=== PATIENT | female | born 1940 | race Caucasian/White ===

== ENCOUNTER 2018-02-25 14:24 | Observation (INO) | payer MEDICARE ==
[~2018-02-25] VITALS: Ht 154.9 cm; Wt 70.9 kg
[2018-02-25 14:12] VITALS: BP 140/66
[2018-02-25 14:15] VITALS: BP 140/66
[2018-02-25] MEDS ORDERED: HYDROCODONE/APAP 5MG-325MG TAB PO PRN (14:30)
[2018-02-25] MEDS ORDERED: ACETAMINOPHEN 325 MG TAB PO PRN (14:30)
[2018-02-25] MEDS ORDERED: ONDANSETRON HCL INJ 2 MG/ML VIAL IV PRN (14:30)
--- NOTE | 2018-02-25 16:17 | Diagnostic Imaging Report ---
EXAMINATION: MRI of the brain without contrast. HISTORY: Left lower extremity numbness, evaluate for acute stroke COMPARISON: None. TECHNIQUE: Sagittal T2; axial DWI, T2, FLAIR, T1-IR, T2 gradient echo; coronal FLAIR. IMAGE QUALITY: Adequate. FINDINGS: Parenchyma: 1. Few a scattered and mildly confluent periventricular white matter T2 and FLAIR hyperintense foci, most likely nonspecific chronic microvascular ischemic changes. 2. No mass, hemorrhage, acute or chronic infarcts. Skull: Unremarkable. Vessels: Expected flow voids present in the major arteries and dural sinuses. Extra-axial spaces: No abnormal signal intensity or mass effect. Brain volume: Within normal limits for age. Ventricles: No hydrocephalus or displacement. Foramen magnum: Unremarkable. Sella: Unremarkable. Paranasal / mastoid sinuses: No significant inflammatory disease. IMPRESSION: 1. No acute or chronic infarcts. 2. Mild chronic microvascular ischemic changes. Signed by: Dr. Ninoska Stein M.D. on 02/25/2018 4:14 PM
[2018-02-25 17:46] VITALS: BP 140/66
[2018-02-25] MEDS ORDERED: SERTRALINE HCL100 MG PO (18:17)
[2018-02-25] MEDS ORDERED: KLONOPIN1 MG PO (18:17)
[2018-02-25] MEDS ORDERED: TRAZODONE HCL50 MG PO (18:17)
[2018-02-25] MEDS ORDERED: BUPROPION HCL150 MG PO (18:17)
[2018-02-25 20:00] VITALS: BP 127/62
[2018-02-25 20:45] VITALS: BP 127/62
[2018-02-25] MEDS ORDERED: TRAZODONE HCL 50 MG TAB PO SCH (21:00)
[2018-02-25] MEDS ORDERED: ATORVASTATIN 20 MG TAB PO SCH (21:00)
--- NOTE | 2018-02-25 21:07 | Consultation ---
DATE OF CONSULTATION: February 25, 2018 NEUROLOGY CONSULTATION HISTORY OF PRESENT ILLNESS: Ms. Branch is a 77-year-old [id number] woman without vascular risk factors, admitted to [facility] under observation status on February 25, 2018, with symptoms concerning for a stroke. At approximately 0900 on February 25, 2018, the patient was sitting on her bed with her left leg crossed over her right leg. Ms. Branch noted numbness affecting her left foot and foreleg distal to the knee. The patient uncrossed her legs, but the numbness persisted. Ms. Branch does not endorse burning pain, tingling, pins and needles sensation, or other abnormal sensation associated with the numbness. She does not endorse a visual field cut or other disturbance, dysarthria, aphasia, facial droop, hemiparesis, dizziness, or confusion associated with the left leg numbness. She does endorse impairment of gait and balance, but this is chronic. The patient is uncertain as to whether or not there was worsening of these symptoms in association with the left leg numbness. Ms. Branch admits to being very anxious regarding the above symptoms. She notified emergency medical services and was transported by ambulance to a freestanding emergency center for further evaluation. In the emergency center, an electrocardiogram showed a normal sinus rhythm of 80 beats per minute. Blood work and urine studies were unremarkable. A CT of the brain without contrast was performed and did not show evidence of recent large territorial ischemia or hemorrhage. Ms. Branch was transferred to [facility] for further evaluation and treatment. At present, Ms. Branch does not report numbness affecting her left foot or foreleg. She reports these symptoms resolved after several hours. REVIEW OF SYSTEMS: Numbness of the left foot and foreleg, insomnia, anxiety. Otherwise the 12-point review of systems was negative. PAST MEDICAL HISTORY: Mixed depression/anxiety disorder. PAST SURGICAL HISTORY: Bilateral tubal ligation, total hysterectomy, cholecystectomy/appendectomy, bilateral cataract removal. PAST HOSPITALIZATIONS: Surgeries/procedures as listed, childbirth x4. FAMILY MEDICAL HISTORY: The patient's paternal and maternal grandparents are . Their medical histories are unknown. The patient's father is . He had diabetes mellitus. The patient's mother is . Her medical history included hypertension, hyperlipidemia, stroke, and breast cancer. The patient has no siblings. Ms. Branch has 4 children, 3 girls and 1 boy, all of whom are living. The eldest daughter has schizophrenia. The son is HIV positive. The second daughter had breast cancer 1 year ago. The youngest daughter has fibromyalgia, endometriosis, and a hip disorder requiring radiation therapy. SOCIAL HISTORY: The patient is . She is retired. 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 Ms. Branch does report a remote history of tobacco use, but quit smoking cigarettes 50 years ago. She reports drinking an occasional glass of wine. She does not report current or prior recreational drug use. HOME MEDICATIONS: Wellbutrin 50 mg by mouth every morning, clonazepam 1 mg by mouth every morning, sertraline 100 mg by mouth twice daily, BuSpar 10 mg by mouth daily, trazodone 1 tablet by mouth at bedtime daily, aspirin 81 mg by mouth at bedtime daily. ALLERGIES: NO KNOWN DRUG ALLERGIES. NO KNOWN FOOD ALLERGIES. MS. BRANCH DOES ENDORSE A LATEX ALLERGY. NO KNOWN ALLERGIES TO IODINE OR OTHER CONTRAST MATERIALS. PHYSICAL EXAMINATION VITAL SIGNS: Height 61 inches, weight 160 pounds, BMI 30.2 kg per meter squared. Blood pressure 140/66 mmHg, pulse 80 beats per minute, respiratory ate 20 breaths per minute, oxygen saturation 96% on room air. GENERAL: The patient is awake and alert, does not appear distressed. Obese. HEENT: Normocephalic, atraumatic. Pupils are surgical. Moist mucous membranes. NECK: Supple. No appreciable thyromegaly. No appreciable carotid bruits. CARDIOVASCULAR: S1, S2, regular rate and rhythm. No murmurs, rubs, or gallops. RESPIRATORY: Clear to auscultation bilaterally. No wheezes, rhonchi, or rales. EXTREMITIES: The skin is warm and dry. No clubbing, cyanosis, or edema. The posterior tibial and dorsalis pedis pulses are 2+ and symmetric. SKIN: No rashes or lesions. NEUROLOGIC MEMORY/ATTENTION: The patient is awake and alert, oriented to person, place, time, and situation. CRANIAL NERVES: Cranial nerve 1--Not tested. Cranial nerve 2, 3, 4, and 6--Pupils are surgical. Extraocular movements intact. No nystagmus. Cranial nerve 5--Sensation to light touch and pinprick is intact in the bilateral V1 through V3 distributions. Strength of the temporalis and masseter muscles is within normal limits. Cranial nerve 7--The face is symmetric, as are all facial movements. Strength is within normal limits. Cranial nerve 8--Hearing is diminished to finger rub bilaterally. Cranial nerve 9, 10--The soft palate elevates equally and symmetrically. Cranial nerve 11--Normal strength of the bilateral sternocleidomastoid and trapezius muscles. Cranial nerve 12--The tongue protrudes midline and moves symmetrically from side to side. STRENGTH: Bulk is normal. Strength is 5/5 in the bilateral deltoids, biceps, triceps, wrist flexors and extensors, finger flexors and extensors, intrinsic hand muscles, hip flexors, knee flexors and extensors, ankle dorsiflexion and plantarflexion, and intrinsic foot muscles. Tone is normal. DTRS: Deep tendon reflexes are 2+ and symmetric at the triceps, biceps, brachial radialis, patellas, and Achilles. Plantar responses are flexor bilaterally. Positive Tinel's at the bilateral fibular heads. SENSATION: Sensation is intact to light touch and pinprick in both arms and both legs. CEREBELLAR: Mbfrnq-uhnz-nkszfz and heel-agee movements are intact without dysmetria or other impairment. GAIT: Deferred. SPEECH: Spontaneous speech is normal without appreciable dysarthria or aphasia. Repetition is intact. INVOLUNTARY MOVEMENTS: None. PRONATOR DRIFT: None. LABORATORY DATA: The patient's comprehensive metabolic panel is unremarkable. The CBC with differential and platelets is unremarkable. A urinalysis is within normal limits. DIAGNOSTIC STUDIES Electrocardiogram February 25, 2018: Normal sinus rhythm at [address] of the brain without contrast February 25, 2018: No acute intracranial abnormalities. MRI of the brain without contrast February 25, 2018: On my review, there is no evidence of recent large territorial ischemia, hemorrhage, mass, or mass effect. Cerebral volumes are appropriate for age. There are scattered nonspecific T2/FLAIR hyperintense foci in the supratentorial white matter compatible with mild to moderate chronic small-vessel ischemic disease. ASSESSMENT AND PLAN: Ms. Branch is a 77-year-old zbkys-esap-qdrifkis woman without known vascular risk factors, admitted with transient numbness affecting the left foot and foreleg. At present, her neurological examination is nonfocal. The patient's laboratory data and other diagnostic studies have been reviewed and are documented above. The numbness affecting the patient's left foot and foreleg is due to a left peroneal neuropathy, probably at the fibular head given the positive Tinel's sign at that location. 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 Ms. Branch was advised to refrain from crossing her legs at the knee to limit progression of her nerve injury and occurrence of the symptoms described in the history of present illness. Thank you for this consultation. There are no recommendations from the neurology service at this time. The patient may be discharged to home. Time spent: 70 minutes. Job#: [id number] EV MTDMary Anne
[2018-02-25] MEDS ORDERED: SERTRALINE HCL 100 MG TAB PO ONE (22:30)
[2018-02-25] MEDS ORDERED: CLONAZEPAM 1 MG TAB PO ONE (22:30)
[2018-02-26] VITALS: BP 138/75
[2018-02-26 04:00] VITALS: BP 98/44
[2018-02-26 05:04] LABS: BASOPHILS % 0.5 % (0.0-1.0); EOSINOPHILS # (AUTO) 0.2 (0.0-0.4); HEMATOCRIT 34.7 % (34.2-44.1); HEMOGLOBIN 11.7 g/dL (12.0-16.0); LYMPHOCYTES # (AUTO) 2.8 (1.0-3.2); LYMPHOCYTES % 46.6 % (18.0-39.1); MEAN CORPUSCULAR HEMOGLOBIN 29.1 pg (28-32); MEAN CORPUSCULAR HGB CONC 33.7 g/dL (31-35); MEAN CORPUSCULAR VOLUME 86.3 fL (81-99); MONOCYTES # (AUTO) 0.7 (0.2-0.8); MONOCYTES % 11.6 % (4.4-11.3); NEUTROPHILS # (AUTO) 2.3 (2.1-6.9); NEUTROPHILS % 38.1 % (38.7-80.0); PLATELET COUNT 159 x10e3/uL (140-360); RED BLOOD COUNT 4.02 x10e6/uL (3.6-5.1); RED CELL DISTRIBUTION WIDTH 12.4 % (11.7-14.4)
[2018-02-26 05:33] LABS: ALANINE AMINOTRANSFERASE 18 IU/L (0-55); ALBUMIN 3.6 g/dL (3.5-5.0); ALBUMIN/GLOBULIN RATIO 1.3 (0.8-2.0); ALKALINE PHOSPHATASE 43 IU/L (40-150); BLOOD UREA NITROGEN 17 mg/dL (7-26); BUN/CREATININE RATIO 20 (6-25); CALCIUM 9.5 mg/dL (8.4-10.2); CARBON DIOXIDE 26 mmol/L (22-29); CHLORIDE 107 mmol/L (98-107); CREATININE, SERUM 0.83 mg/dL (0.57-1.11); EST GLOMERULAR FILTRATION RATE > 60 ML/MIN (60-); GLUCOSE 91 mg/dL (74-118); SODIUM 142 mmol/L (136-145)
[2018-02-26 07:39] VITALS: BP 100/57
[2018-02-26] MEDS ORDERED: SERTRALINE HCL 100 MG TAB PO SCH (09:00)
[2018-02-26] MEDS ORDERED: ASPIRIN 81 MG ENTERIC COATED PO SCH (09:00)
[2018-02-26] MEDS ORDERED: CLONAZEPAM 1 MG TAB PO SCH ×2 (09:00)
[2018-02-26] MEDS ORDERED: BUPROPION HCL SR 150 MG TAB PO SCH (09:00)
[2018-02-26] MEDS ORDERED: ASPIRIN 325 MG TAB PO SCH (09:00)
[2018-02-26 11:15] VITALS: BP 105/61
--- NOTE | 2018-02-26 11:50 | History and Physical ---
HISTORY AND PHYSICAL AND DISCHARGE SUMMARY CHIEF COMPLAINT: Left lower extremity numbness and difficulty walking on the left leg. HPI: This is a 77-year-old female with past medical history of depression and anxiety, who is right-handed predominantly, who presented to an outside [facility] ER with complaints of left lower leg numbness and weakness that began early yesterday morning. Patient presented there at the outside ER and was transferred here to [facility] for further evaluation for concerns of an underlying TIA. Patient reports that at approximately 9 a.m. on February 25, 2018, she began to have some numbness in the left foot and left foreleg distal to the knee. Patient reports that she crosses her legs quite often. She noticed that when she uncrossed her legs that the numbness persisted. Patient was then transferred here for further management and care. There was no evidence of any facial droop, slurred speech, any weakness. No chest pain. No palpitations. Neurology evaluated the patient and it was felt that the patient had a peroneal neuropathy due to crossing her legs. Patient was evaluated. Currently, her numbness is gone and she has no other complaints at this time. REVIEW OF SYSTEMS: Pertinent positives: Left lower extremity numbness and weakness. Pertinent negatives: Denies any chest pain, palpitation, nausea, vomiting, diarrhea, dysuria, hematuria, frequency, urgency, lightheadedness, dizziness, abdominal pain, headache, shortness of breath, cough, congestion, fever, or any other complaints. The rest of 14-point review of systems have been reviewed with the patient and are negative. ALLERGIES: TO LATEX. HOME MEDICATIONS 1. Bupropion 150 mg extended release daily. 2. Klonopin 1 mg p.o. daily. 3. Sertraline 100 mg p.o. b.i.d. 4. Trazodone 50 mg at bedtime for sleep. PAST MEDICAL HISTORY: Anxiety and depression. SURGICAL HISTORY: Bilateral tubal ligation, total hysterectomy, cholecystectomy, appendectomy, bilateral cataract removal. FAMILY HISTORY: Hypertension, diabetes, and also history of CVAs in the past. SOCIAL HISTORY: She is retired. She has history of smoking in the past, 50 pack years. No drugs. Uses occasional wine for alcohol. Otherwise, she has good social support. VITAL SIGNS: Temperature is 97.3, pulse is 72, respiratory rate 17, blood pressure was 138/75, pulse ox 98% on room air. LABORATORY DATA: Lab findings show white count 5.9, hemoglobin 11.7, hematocrit is 34.7, platelets of 159. Chemistry; sodium 142, potassium 4, chloride 107, bicarb 26, anion gap of 13, BUN is 17, creatinine is 0.83, glucose 91, calcium 9.5. Total bilirubin is 0.6, AST 21, ALT 18, alk phos 43, albumin is 3.6. IMAGING: MRI of the brain was performed, no acute or chronic infarct. Mild chronic microvascular ischemic changes. PHYSICAL EXAMINATION GENERAL: Not in acute distress, alert and oriented x3, cooperative on examination. HEENT: Head normocephalic, atraumatic. Eyes, pupils equal, round, and reactive to light bilaterally. Extraocular movements intact bilaterally. Throat; no evidence of any erythema or exudates in the posterior pharynx. Has poor dentition. NECK: Supple with good range of motion. PULMONARY: Clear to auscultation bilaterally. No wheezing. No rales. No rhonchi. No crackles appreciated. CARDIOVASCULAR: Positive S1, S2. No murmurs, rubs, or gallops appreciated. ABDOMEN: Soft, nondistended, nontender to palpation. Bowel sounds present. MUSCULOSKELETAL: Strength is 5/5 throughout. No evidence of any muscle deficit on examination. No weakness appreciated. NEUROLOGICAL: Cranial nerves II through XII are grossly intact. No evidence of neurologic deficit on exam. SKIN: Intact. Warm to touch. Good cap refill. PSYCHIATRIC: Normal affect and mood. EXTREMITIES: No edema. Good range of motion throughout. IMPRESSION 1. 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 2. Anxiety. 3. Depression. PLAN: At this time, per neurology, no further workup was needed. This is peroneal neuropathy from patient crossing her legs. Her symptoms are now resolved. At this time, she has been cleared by neurology with no workup needed. Her symptoms are now all resolved. Patient will continue with same home medications and there will be no changes to her home regimen. She is otherwise stable for discharge home. All her other medications were resumed while here in the hospital. Patient is cleared now for discharge. Job#: [id number] LPA
== END 2018-02-26 12:55 | disposition home or self-care (01) ==
LOC: MED/SURG2 14:24
PROVIDERS: ADMIT Internal Medicine; ATTEND Internal Medicine
DX: G62.9 Polyneuropathy, unspecified (principal); F41.8 Other specified anxiety disorders; Z87.891 Personal history of nicotine dependence; Z82.49 Family history of ischemic heart disease and other diseases of the circulatory system; Z83.3 Family history of diabetes mellitus; Z82.3 Family history of stroke; Z91.040 Latex allergy status
CPT/HCPCS: 36415; 70551; 80053; 85025; G0378 ×2

== ENCOUNTER 2022-06-06 15:32 | Inpatient (IN) | payer MEDICARE ==
[~2022-06-06] VITALS: Ht 154.9 cm; Wt 70.8 kg
[~2022-06-06 15:32] MED LIST: BUPROPION HCL150 MG PO; CEPHALEXIN500 MG PO; KLONOPIN1 MG PO; SERTRALINE HCL100 MG PO; TRAZODONE HCL50 MG PO
[2022-06-06] MEDS ORDERED: ONDANSETRON HCL INJ 2MG/ML 2ML 2 MG/ML VIAL IV STA (15:46)
[2022-06-06] MEDS ORDERED: SODIUM CHLORIDE 0.9% 1000ML 1,000 ML IV ONE ×2 (16:00→20:15)
[2022-06-06 17:10] LABS: BASOPHILS % 0.2 % (0.0-1.0); EOSINOPHILS % 0.3 % (0.0-6.0); HEMATOCRIT 34.5 % (34.2-44.1); HEMOGLOBIN 10.5 g/dL (12.0-16.0); LYMPHOCYTES # (AUTO) 0.8 (1.0-3.2); LYMPHOCYTES % 8.2 % (18.0-39.1); MEAN CORPUSCULAR HEMOGLOBIN 28.2 pg (28-32); MEAN CORPUSCULAR HGB CONC 30.4 g/dL (31-35); MEAN CORPUSCULAR VOLUME 92.7 fL (81-99); MONOCYTES # (AUTO) 0.6 (0.2-0.8); MONOCYTES % 6.7 % (4.4-11.3); NEUTROPHILS # (AUTO) 7.9 (2.1-6.9); NEUTROPHILS % 84.3 % (38.7-80.0); PLATELET COUNT 169 x10e3/uL (140-360); RED BLOOD COUNT 3.72 x10e6/uL (3.6-5.1); RED CELL DISTRIBUTION WIDTH 12.5 % (11.7-14.4)
[2022-06-06 17:24] LABS: ALANINE AMINOTRANSFERASE 26 IU/L (0-55); ALBUMIN 3.2 g/dL (3.5-5.0); ALKALINE PHOSPHATASE 48 IU/L (40-150); ANION GAP 14.4 mmol/L (8-16); BLOOD UREA NITROGEN 15 mg/dL (7-26); BUN/CREATININE RATIO 18 (6-25); CALCIUM 8.9 mg/dL (8.4-10.2); CARBON DIOXIDE 25 mmol/L (22-29); CHLORIDE 104 mmol/L (98-107); CREATINE KINASE 376 IU/L (29-168); CREATININE, SERUM 0.84 mg/dL (0.57-1.11); GLUCOSE 95 mg/dL (74-118); POTASSIUM 3.4 mmol/L (3.5-5.1); SODIUM 140 mmol/L (136-145)
[2022-06-06 17:54] LABS: CLARITY,URINE CLEAR (CLEAR); COLOR,URINE YELLOW (YELLOW); LEUKOCYTE ESTERASE ,URINE NEGATIVE (NEGATIVE); NITRITE,URINE POSITIVE (NEGATIVE)
[2022-06-06 17:55] LABS: KETONES,URINE NEGATIVE (NEGATIVE); PROTEIN,URINE DIPSTICK NEGATIVE (NEGATIVE); URINE UROBILINOGEN 0.2 mg/dL (0.2 - 1)
[2022-06-06 18:01] LABS: WBC,URINE (MAN) 0-5 /HPF (0-5)
[2022-06-06] MEDS ORDERED: SODIUM CHLORIDE FLUSH 10 ML SYR INJ PRN (19:15)
[2022-06-06] MEDS ORDERED: ONDANSETRON HCL INJ 2MG/ML 2ML 2 MG/ML VIAL IV PRN (19:15)
[2022-06-06] MEDS ORDERED: SODIUM CHLORIDE 0.9% 1000ML 1,000 ML IV SCH ×2 (19:15)
[2022-06-06] MEDS ORDERED: ACETAMINOPHEN 325 MG TAB PO PRN (20:15)
[2022-06-06] MEDS: SODIUM CHLORIDE 0.9% 1000ML 1,000 ML IV SCH (20:47)
[2022-06-06] MEDS ORDERED: SODIUM CHLORIDE 0.9% 1000ML 500 ML IV ONE (21:30)
[2022-06-06] MEDS ORDERED: SODIUM CHLORIDE 0.9% 500ML 500 ML ONE (21:44)
[2022-06-06] MEDS ORDERED: NAMENDA5 MG PO (23:27)
[2022-06-06] MEDS ORDERED: B12 ACTIVE1000 MCG (23:27)
[2022-06-06] MEDS ORDERED: MULTIVITAMIN200 MCG (23:27)
[2022-06-06] MEDS ORDERED: BUSPIRONE HCL15 MG (23:27)
[2022-06-06] MEDS ORDERED: WELLBUTRIN SR150 MG PO (23:27)
[2022-06-06] MEDS ORDERED: ARICEPT10 MG PO (23:27)
[2022-06-06] MEDS ORDERED: KLONOPIN0.5 MG PO (23:27)
[2022-06-06] MEDS ORDERED: ASPIRIN CHEW81 MG PO (23:27)
[2022-06-06] MEDS ORDERED: FLUCONAZOLE100 MG PO (23:27)
[2022-06-07] VITALS: BP 112/45
[2022-06-07] MEDS: MEMANTINE 10 MG TAB PO SCH ×3 (00:29→21:23)
[2022-06-07] MEDS: DONEPEZIL HCL 5 MG TAB PO SCH ×2 (00:30→21:17)
[2022-06-07] MEDS: SERTRALINE HCL 100 MG TAB PO SCH ×3 (00:30→17:10)
[2022-06-07] MEDS: TRAZODONE HCL 50 MG TAB PO SCH ×2 (00:30→21:17)
[2022-06-07] MEDS: BUSPIRONE HCL 5 MG TAB PO SCH ×3 (00:30→17:11)
[2022-06-07] MEDS: SODIUM CHLORIDE 0.9% 1000ML 1,000 ML IV SCH ×3 (05:15→21:15)
[2022-06-07 05:16] LABS: BASOPHILS % 0.2 % (0.0-1.0); EOSINOPHILS # (AUTO) 0.2 (0.0-0.4); EOSINOPHILS % 2.6 % (0.0-6.0); HEMATOCRIT 29.9 % (34.2-44.1); HEMOGLOBIN 9.4 g/dL (12.0-16.0); LYMPHOCYTES # (AUTO) 1.1 (1.0-3.2); MEAN CORPUSCULAR HEMOGLOBIN 28.2 pg (28-32); MEAN CORPUSCULAR HGB CONC 31.4 g/dL (31-35); MEAN CORPUSCULAR VOLUME 89.8 fL (81-99); MONOCYTES # (AUTO) 0.6 (0.2-0.8); MONOCYTES % 10.6 % (4.4-11.3); NEUTROPHILS % 67.7 % (38.7-80.0); PLATELET COUNT 124 x10e3/uL (140-360); RED BLOOD COUNT 3.33 x10e6/uL (3.6-5.1)
[2022-06-07 05:35] LABS: ANION GAP 11.4 mmol/L (8-16); CALCIUM 7.9 mg/dL (8.4-10.2); CREATININE, SERUM 0.82 mg/dL (0.57-1.11); POTASSIUM 3.4 mmol/L (3.5-5.1)
[2022-06-07 08:23] VITALS: BP 104/45
[2022-06-07 08:29] VITALS: BP 104/45
[2022-06-07] MEDS ORDERED: DOCUSATE SODIUM 100 MG CAP PO PRN (08:30)
[2022-06-07] MEDS: MULTIVITAMINS/MINERALS TAB PO SCH (09:00)
[2022-06-07] MEDS ORDERED: ATORVASTATIN CA20 MG PO (09:05)
[2022-06-07] MEDS ORDERED: LUMIGAN OU (09:33)
[2022-06-07] MEDS ORDERED: LATANOPROST 0.7.5 ML OU (09:33)
[2022-06-07] MEDS ORDERED: BACTRIM DS TAB1 EACH PO (09:34)
[2022-06-07] MEDS: CLONAZEPAM 0.5 MG TAB PO SCH (10:06)
[2022-06-07 17:37] VITALS: BP 105/54
[2022-06-07 20:00] VITALS: BP 113/49
[2022-06-07 20:33] VITALS: BP 113/49
[2022-06-07] MEDS ORDERED: NON-FORMULARY MEDICATION (Latanoprost/Pf (Latanoprost 0.005% Eye Drop) 1 DROP) OU SCH (21:00)
[2022-06-07] MEDS: LATANOPROST(OPTH) 2.5 ML BTL OP SCH (21:00)
[2022-06-07] MEDS: LUMIGAN OU SCH (21:00)
[2022-06-07] MEDS: ACETAMINOPHEN 325 MG TAB PO PRN (21:16)
[2022-06-07] MEDS: METRONIDAZOLE 500MG/NS 100ML 100 ML IV SCH (21:16)
[2022-06-08 00:49] VITALS: BP 116/45
[2022-06-08] MEDS: METRONIDAZOLE 500MG/NS 100ML 100 ML IV SCH ×2 (05:15→15:00)
[2022-06-08] MEDS: CLONAZEPAM 0.5 MG TAB PO SCH (05:16)
[2022-06-08] MEDS ORDERED: CLONAZEPAM 0.5 MG TAB PO SCH (06:00)
[2022-06-08 06:17] VITALS: BP 96/52
[2022-06-08] MEDS ORDERED: METRONIDAZOLE500 MG PO (07:42)
[2022-06-08] MEDS ORDERED: CEPHALEXIN500 MG PO (07:42)
[2022-06-08 09:00] VITALS: BP 122/51
[2022-06-08] MEDS ORDERED: MULTIVIT MINERALS PO SCH (09:00)
[2022-06-08] MEDS ORDERED: FOLIC ACID PO SCH (09:00)
[2022-06-08 09:07] VITALS: BP 122/51
[2022-06-08] MEDS: SODIUM CHLORIDE 0.9% 1000ML 1,000 ML IV SCH ×3 (09:52→21:11)
[2022-06-08] MEDS: SERTRALINE HCL 100 MG TAB PO SCH ×3 (09:53→20:58)
[2022-06-08] MEDS: MULTIVITAMINS/MINERALS TAB PO SCH (09:53)
[2022-06-08] MEDS: BUSPIRONE HCL 5 MG TAB PO SCH ×3 (09:54→20:58)
[2022-06-08] MEDS: MEMANTINE 10 MG TAB PO SCH ×3 (09:54→20:59)
[2022-06-08 09:56] LABS: BASOPHILS % 0.3 % (0.0-1.0); EOSINOPHILS # (AUTO) 0.1 (0.0-0.4); EOSINOPHILS % 2.2 % (0.0-6.0); HEMATOCRIT 30.3 % (34.2-44.1); HEMOGLOBIN 8.9 g/dL (12.0-16.0); LYMPHOCYTES # (AUTO) 1.2 (1.0-3.2); LYMPHOCYTES % 19.4 % (18.0-39.1); MEAN CORPUSCULAR HEMOGLOBIN 28.1 pg (28-32); MEAN CORPUSCULAR HGB CONC 29.4 g/dL (31-35); MEAN CORPUSCULAR VOLUME 95.6 fL (81-99); MONOCYTES # (AUTO) 0.7 (0.2-0.8); MONOCYTES % 10.6 % (4.4-11.3); NEUTROPHILS # (AUTO) 4.2 (2.1-6.9); NEUTROPHILS % 66.7 % (38.7-80.0); PLATELET COUNT 129 x10e3/uL (140-360); RED BLOOD COUNT 3.17 x10e6/uL (3.6-5.1); RED CELL DISTRIBUTION WIDTH 13.1 % (11.7-14.4)
[2022-06-08] MEDS ORDERED: ONDANSETRON HCL 4 MG ORAL DISINTEGRATING TAB PO PRN (10:15)
[2022-06-08 10:20] LABS: ANION GAP 11.4 mmol/L (8-16); CREATININE, SERUM 0.75 mg/dL (0.57-1.11); POTASSIUM 3.4 mmol/L (3.5-5.1)
[2022-06-08 10:27] LABS: CALCIUM 8.2 mg/dL (8.4-10.2)
[2022-06-08] MEDS ORDERED: POTASSIUM CHLORIDE 20 MEQ TAB CR PO ONE (11:30)
[2022-06-08] MEDS: ACETAMINOPHEN 325 MG TAB PO PRN (12:08)
[2022-06-08 12:51] VITALS: BP 129/55
[2022-06-08] MEDS ORDERED: CLONAZEPAM 0.5 MG TAB PO ONE (15:45)
[2022-06-08] MEDS: BUPROPION HCL 150 MG TABCR PO SCH (16:00)
[2022-06-08 20:19] VITALS: BP 143/59
[2022-06-08] MEDS: TRAZODONE HCL 50 MG TAB PO SCH (20:58)
[2022-06-08] MEDS: DONEPEZIL HCL 5 MG TAB PO SCH (21:00)
[2022-06-08] MEDS ORDERED: BENZONATATE 100 MG CAP PO PRN (21:00)
[2022-06-08] MEDS: LATANOPROST(OPTH) 2.5 ML BTL OP SCH (21:11)
[2022-06-08] MEDS: LUMIGAN OU SCH (21:11)
[2022-06-09] VITALS (7 sets, daily range): BP systolic 126–144; BP diastolic 58–70
[2022-06-09] MEDS: METRONIDAZOLE 500MG/NS 100ML 100 ML IV SCH ×2 (00:02→06:30)
[2022-06-09] MEDS: GUAIFENESIN 200 MG/10 ML UDC PO PRN ×2 (02:48→18:16)
[2022-06-09] MEDS: SODIUM CHLORIDE 0.9% 1000ML 1,000 ML IV SCH ×3 (06:30→21:43)
[2022-06-09] MEDS: CLONAZEPAM 0.5 MG TAB PO SCH (06:30)
[2022-06-09 09:04] LABS: ANION GAP 12.6 mmol/L (8-16); CALCIUM 8.5 mg/dL (8.4-10.2); CREATININE, SERUM 0.76 mg/dL (0.57-1.11); MAGNESIUM 1.5 MG/DL (1.3-2.1); PHOSPHORUS 1.9 MG/DL (2.3-4.7); POTASSIUM 3.6 mmol/L (3.5-5.1)
[2022-06-09] MEDS: BUSPIRONE HCL 5 MG TAB PO SCH ×2 (10:14→21:41)
[2022-06-09] MEDS: MULTIVITAMINS/MINERALS TAB PO SCH (10:14)
[2022-06-09] MEDS: BUPROPION HCL 150 MG TABCR PO SCH (10:15)
[2022-06-09] MEDS: SERTRALINE HCL 100 MG TAB PO SCH ×2 (10:15→21:42)
[2022-06-09 13:00] LABS: BASOPHILS % 0.2 % (0.0-1.0); EOSINOPHILS # (AUTO) 0.1 (0.0-0.4); EOSINOPHILS % 0.6 % (0.0-6.0); HEMATOCRIT 32.4 % (34.2-44.1); HEMOGLOBIN 9.7 g/dL (12.0-16.0); LYMPHOCYTES # (AUTO) 1.1 (1.0-3.2); LYMPHOCYTES % 13.6 % (18.0-39.1); MEAN CORPUSCULAR HEMOGLOBIN 28.3 pg (28-32); MEAN CORPUSCULAR HGB CONC 29.9 g/dL (31-35); MEAN CORPUSCULAR VOLUME 94.5 fL (81-99); MONOCYTES # (AUTO) 0.6 (0.2-0.8); NEUTROPHILS # (AUTO) 6.4 (2.1-6.9); PLATELET COUNT 169 x10e3/uL (140-360); RED BLOOD COUNT 3.43 x10e6/uL (3.6-5.1); RED CELL DISTRIBUTION WIDTH 13.1 % (11.7-14.4)
[2022-06-09] MEDS: FAMOTIDINE 20 MG TAB PO SCH ×2 (13:54→16:55)
[2022-06-09] MEDS ORDERED: FLUCONAZOLE 100 MG TAB PO SCH (14:00)
[2022-06-09] MEDS ORDERED: POTASSIUM PHOSPHATE 15 MM in SODIUM CHLORIDE 0.9% 250ML 250 ML IV ONE (17:00)
[2022-06-09] MEDS: CALCIUM CARBONATE 500 MG CHEWABLE TABS PO SCH (18:16)
[2022-06-09] MEDS: TRAZODONE HCL 50 MG TAB PO SCH (21:42)
[2022-06-09] MEDS: LUMIGAN OU SCH (21:42)
[2022-06-09] MEDS: DONEPEZIL HCL 5 MG TAB PO SCH (21:42)
[2022-06-09] MEDS: MEMANTINE 10 MG TAB PO SCH (21:42)
[2022-06-09] MEDS: LATANOPROST(OPTH) 2.5 ML BTL OP SCH (21:43)
[2022-06-10] VITALS (9 sets, daily range): BP systolic 125–159; BP diastolic 53–73
[2022-06-10] MEDS: GUAIFENESIN 200 MG/10 ML UDC PO PRN ×3 (05:23→19:07)
[2022-06-10] MEDS: SODIUM CHLORIDE 0.9% 1000ML 1,000 ML IV SCH ×3 (05:29→20:15)
[2022-06-10 05:46] LABS: ANION GAP 12.4 mmol/L (8-16); CALCIUM 8.5 mg/dL (8.4-10.2); CREATININE, SERUM 0.68 mg/dL (0.57-1.11); MAGNESIUM 1.6 MG/DL (1.3-2.1); PHOSPHORUS 2.8 MG/DL (2.3-4.7); POTASSIUM 3.4 mmol/L (3.5-5.1)
[2022-06-10] MEDS: FAMOTIDINE 20 MG TAB PO SCH ×2 (07:45→17:47)
[2022-06-10] MEDS: CALCIUM CARBONATE 500 MG CHEWABLE TABS PO SCH ×3 (07:45→17:47)
[2022-06-10] MEDS: SERTRALINE HCL 100 MG TAB PO SCH ×2 (09:45→20:55)
[2022-06-10] MEDS: BUPROPION HCL 150 MG TABCR PO SCH (09:45)
[2022-06-10] MEDS: MULTIVITAMINS/MINERALS TAB PO SCH (09:45)
[2022-06-10] MEDS: CLONAZEPAM 0.5 MG TAB PO SCH (09:46)
[2022-06-10] MEDS: BUSPIRONE HCL 5 MG TAB PO SCH ×2 (09:46→20:54)
[2022-06-10] MEDS ORDERED: FLUCONAZOLE 100 MG/NS 50 ML 50 ML IV SCH (10:00)
[2022-06-10] MEDS: ACETAMINOPHEN 325 MG TAB PO PRN (12:59)
[2022-06-10] MEDS: LATANOPROST(OPTH) 2.5 ML BTL OP SCH (20:50)
[2022-06-10] MEDS: LUMIGAN OU SCH (20:50)
[2022-06-10] MEDS: DONEPEZIL HCL 5 MG TAB PO SCH (20:53)
[2022-06-10] MEDS: TRAZODONE HCL 50 MG TAB PO SCH (20:55)
[2022-06-10] MEDS: MEMANTINE 10 MG TAB PO SCH (20:56)
[2022-06-11] VITALS (9 sets, daily range): BP systolic 122–136; BP diastolic 60–64
[2022-06-11] MEDS: SODIUM CHLORIDE 0.9% 1000ML 1,000 ML IV SCH ×3 (04:15→20:15)
[2022-06-11] MEDS: FAMOTIDINE 20 MG TAB PO SCH ×2 (07:33→17:17)
[2022-06-11] MEDS: CALCIUM CARBONATE 500 MG CHEWABLE TABS PO SCH ×3 (07:33→17:17)
[2022-06-11] MEDS: CLONAZEPAM 0.5 MG TAB PO SCH (09:25)
[2022-06-11] MEDS: MULTIVITAMINS/MINERALS TAB PO SCH (09:25)
[2022-06-11] MEDS: SERTRALINE HCL 100 MG TAB PO SCH ×2 (09:25→21:34)
[2022-06-11] MEDS: BUSPIRONE HCL 5 MG TAB PO SCH ×2 (09:25→21:35)
[2022-06-11] MEDS: BUPROPION HCL 150 MG TABCR PO SCH (09:25)
[2022-06-11] MEDS: GUAIFENESIN 200 MG/10 ML UDC PO PRN (19:28)
[2022-06-11] MEDS: LUMIGAN OU SCH (21:00)
[2022-06-11] MEDS: TRAZODONE HCL 50 MG TAB PO SCH (21:34)
[2022-06-11] MEDS: DONEPEZIL HCL 5 MG TAB PO SCH (21:35)
[2022-06-11] MEDS: LATANOPROST(OPTH) 2.5 ML BTL OP SCH (21:36)
[2022-06-11] MEDS: MEMANTINE 10 MG TAB PO SCH (21:41)
[2022-06-12] VITALS (7 sets, daily range): BP systolic 120–146; BP diastolic 63–66
[2022-06-12] MEDS: SODIUM CHLORIDE 0.9% 1000ML 1,000 ML IV SCH ×2 (04:15→20:15)
[2022-06-12] MEDS: CALCIUM CARBONATE 500 MG CHEWABLE TABS PO SCH ×3 (07:48→17:09)
[2022-06-12] MEDS: FAMOTIDINE 20 MG TAB PO SCH ×2 (07:48→17:09)
[2022-06-12] MEDS ORDERED: GUAIFENESIN 200 MG/10 ML UDC PO PRN (10:00)
[2022-06-12] MEDS: BUPROPION HCL 150 MG TABCR PO SCH (10:05)
[2022-06-12] MEDS: CLONAZEPAM 0.5 MG TAB PO SCH (10:05)
[2022-06-12] MEDS: BUSPIRONE HCL 5 MG TAB PO SCH ×2 (10:05→21:26)
[2022-06-12] MEDS: MULTIVITAMINS/MINERALS TAB PO SCH (10:05)
[2022-06-12] MEDS: SERTRALINE HCL 100 MG TAB PO SCH ×2 (10:05→21:26)
[2022-06-12 10:09] LABS: MAGNESIUM 1.9 MG/DL (1.3-2.1); PHOSPHORUS 3.7 MG/DL (2.3-4.7); POTASSIUM 3.9 mmol/L (3.5-5.1)
[2022-06-12] MEDS: LATANOPROST(OPTH) 2.5 ML BTL OP SCH (21:23)
[2022-06-12] MEDS: MEMANTINE 10 MG TAB PO SCH (21:24)
[2022-06-12] MEDS: LUMIGAN OU SCH (21:24)
[2022-06-12] MEDS: DONEPEZIL HCL 5 MG TAB PO SCH (21:25)
[2022-06-12] MEDS: TRAZODONE HCL 50 MG TAB PO SCH (21:27)
[2022-06-13 00:45] VITALS: BP 97/79
[2022-06-13] MEDS: SODIUM CHLORIDE 0.9% 1000ML 1,000 ML IV SCH (04:15)
[2022-06-13 04:20] VITALS: BP 105/60
[2022-06-13] MEDS: ACETAMINOPHEN 325 MG TAB PO PRN ×2 (05:47→11:47)
[2022-06-13 08:00] VITALS: BP 113/67
[2022-06-13] MEDS: CALCIUM CARBONATE 500 MG CHEWABLE TABS PO SCH ×2 (09:40→11:48)
[2022-06-13] MEDS: FAMOTIDINE 20 MG TAB PO SCH (09:40)
[2022-06-13] MEDS: CLONAZEPAM 0.5 MG TAB PO SCH (09:41)
[2022-06-13] MEDS: BUSPIRONE HCL 5 MG TAB PO SCH (09:41)
[2022-06-13] MEDS: MULTIVITAMINS/MINERALS TAB PO SCH (09:41)
[2022-06-13] MEDS: BUPROPION HCL 150 MG TABCR PO SCH (09:41)
[2022-06-13] MEDS: SERTRALINE HCL 100 MG TAB PO SCH (09:41)
[2022-06-13 11:53] VITALS: BP 117/59
== END 2022-06-13 16:54 | disposition home or self-care (01) | DRG 557 ==
LOC: ER 15:47 → ERHOLD 19:09 → INTOOBSV 19:09 → MED/SURG 22:58 → OBSVTOIN 06-08 15:15
PROVIDERS: ADMIT Internal Medicine; ATTEND Internal Medicine
DX: M62.82 Rhabdomyolysis (principal); G93.41 Metabolic encephalopathy; K52.9 Noninfective gastroenteritis and colitis, unspecified; E87.6 Hypokalemia; B37.31 Acute candidiasis of vulva and vagina; I95.9 Hypotension, unspecified; F03.90 Unspecified dementia, unspecified severity, without behavioral disturbance, psychotic disturbance, mood disturbance, and anxiety; F41.9 Anxiety disorder, unspecified; F32.A Depression, unspecified; Z90.710 Acquired absence of both cervix and uterus; Z87.891 Personal history of nicotine dependence; Z20.822 Contact with and (suspected) exposure to COVID-19; K29.70 Gastritis, unspecified, without bleeding
CPT/HCPCS: 36415; 51700; 70450; 71045; 71046; 80048; 80053; 81001; 82550; 82553; 83605; 83735; 84100; 84132; 84484; 85025; 87040; 87086; 93005; 96361; 99252; 99284; G0378; J0696; J1450; J2405; J7030; J7040; J7050